=== PATIENT | female | born 1975 | race Caucasian/White ===

== ENCOUNTER 2020-12-04 22:11 | Emergency (ER) | payer MEDICARE, MEDICAID, SELFPAY ==
[2020-12-04 22:15] VITALS: BP 175/106; PULSE 114; RESP 18; TEMP 37.3; O2SAT 98
--- NOTE | 2020-12-05 00:01 | PC.NURSE ---
Pt upset due to waiting to see ERP. Ambulatory out of dept. States Fuck this shit on the way out the door.
== END 2020-12-05 00:01 | disposition left against medical advice (07) ==
DX: Z53.21 Procedure and treatment not carried out due to patient leaving prior to being seen by health care provider (principal)
CPT/HCPCS: 99199

== ENCOUNTER 2023-02-05 16:09 | Emergency (ER) | payer MEDICARE, MEDICAID, SELFPAY ==
[2023-02-05 16:12] VITALS: BP 129/91; PULSE 105; RESP 18; TEMP 36.8; O2SAT 99
--- NOTE | 2023-02-05 16:53 | PC.NURSE ---
pt leaving d/t wait time, irritable and not willing to listen. pt upset that she was not able to go to E[facility]. pt had IV removed prior to leaving
== END 2023-02-05 17:45 | disposition left against medical advice (07) ==
LOC: ANHED 17:19
DX: S19.9XXA Unspecified injury of neck, initial encounter (principal)
CPT/HCPCS: 99199